=== PATIENT | male | born 1995 | race Hispanic/Latino ===

== ENCOUNTER 2017-07-04 07:29 | Emergency (ER) | payer MEDICAID ==
[2017-07-04 08:29] VITALS: RESP 18; TEMP 99.6; BMI 42.5
[2017-07-04] MEDS ORDERED: Amoxicillin-Clav 875-125 mg Tab PO STA (08:41)
--- NOTE | 2017-07-04 08:45 | ED PDOC ---
Arrival/HPI - General Chief Complaint: Abnormal Skin Integrity Time Seen by Provider: 07/04/17 08:14 Historian: Patient - History of Present Illness Narrative History of Present Illness (Text): 07/04/17 08:44 Cayden Seo is a 22 year old male, who denies any past medical history, presents to the emergency department complaining of a painful bump at the top of the intergluteal cleft. The patient states that he has been experiencing this discomfort for the past 2 days and notes that it is painful to sit. The patient denies fevers, chills, headache, dizziness, chest pain, shortness of breath, dyspnea on exertion, cough, abdominal pain, nausea, vomiting, diarrhea, back pain, neck pain, urinary/bowel changes, or any other complaint. PMD: Dr. Juan Aragon Time/Duration: Other (2 Days) Symptom Onset: Sudden Symptom Course: Unchanged Activities at Onset: Rest, Light Context: Home Past Medical History - Neurological Hx Neurological Disorder: Yes (ADHD) - Psychiatric Hx Substance Use: No - Anesthesia Hx Anesthesia: No Family/Social History Smoking Status: Never Smoked Hx Alcohol Use: Yes Hx Substance Use: No Allergies/Home Meds Allergies/Adverse Reactions: Allergies No Known Allergies Allergy (Verified 07/04/17 08:24) Physical Exam Vital Signs Reviewed: Yes Vital Signs Temp Pulse Resp BP Pulse Ox 07/04/17 08:25 99.6 F 111 H 18 121/79 98 Temperature: Afebrile Blood Pressure: Normal Pulse: Tachycardic Respiratory Rate: Normal Appearance: Positive for: Well-Appearing, Non-Toxic, Comfortable Pain Distress: None Mental Status: Positive for: Alert and Oriented X 3 - Systems Exam Head: Present: Atraumatic, Normocephalic Pupils: Present: PERRL Extroacular Muscles: Present: EOMI Conjunctiva: Present: Normal Mouth: Present: Moist Mucous Membranes Neck: Present: Normal Range of Motion Respiratory/Chest: Present: Clear to Auscultation, Good Air Exchange. No: Respiratory Distress, Accessory Muscle Use Cardiovascular: Present: Regular Rate and Rhythm, Normal S1, S2. No: Murmurs Abdomen: No: Tenderness, Distention, Peritoneal Signs Back: Present: Normal Inspection Upper Extremity: Present: Normal Inspection. No: Cyanosis, Edema Lower Extremity: Present: Normal Inspection. No: Edema Neurological: Present: GCS=15, CN II-XII Intact, Speech Normal Skin: Present: Warm, Dry, Normal Color. No: Rashes Psychiatric: Present: Alert, Oriented x 3, Normal Insight, Normal Concentration Medical Decision Making ED Course and Treatment: 07/04/17 08:49 Impression: A 22 year old male presents to the emergency department presents to the emergency department complaining of a painful abscess at the top of the intergluteal cleft. Plan: -- Augmentin -- Reassess and disposition Progress Notes: 07/04/17 08:41: Case discussed with the neurosurgical nurse practitioner who states that a referral for a surgery consult with Dr. Mims should be given to the patient so the patient can call and make an appointment himself. - Medication Orders Current Medication Orders: Discontinued Medications Amoxicillin/Clavulanate Potassium (Augmentin 875 Mg-125 Mg Tab) 1 tab PO STAT STA PRN Reason: Protocol Stop: 07/04/17 08:42 - Scribe Statement The provider has reviewed the documentation as recorded by the Evelinibisabel Mann Provider Scribe Attestation: All medical record entries made by the Scribe were at my direction and personally dictated by me. I have reviewed the chart and agree that the record accurately reflects my personal performance of the history, physical exam, medical decision making, and the department course for this patient. I have also personally directed, reviewed, and agree with the discharge instructions and disposition. Disposition/Present on Arrival - Present on Arrival Any Indicators Present on Arrival: No History of DVT/PE: No History of Uncontrolled Diabetes: No Urinary Catheter: No History of Decub. Ulcer: No History Surgical Site Infection Following: None - Disposition Have Diagnosis and Disposition been Completed?: Yes Diagnosis: Pilonidal abscess Disposition Time: 08:46 Patient Plan: Discharge Patient Problems: Current Active Problems Problem Status Onset Pilonidal abscess Acute Discharge Instructions (ExitCare): Pilonidal Cyst (DC) Additional Instructions: Call the surgeon's office today to make the appointment to have this excised. Prescriptions: Amoxicillin/Clavulanate [Augmentin 875 MG-125 MG] 1 tab PO BID #20 tab Ondansetron [Zofran Odt] 8 mg PO TID #30 tab.rapdis oxyCODONE/Acetaminophen [Percocet 5/325 mg Tab] 1 ea PO QID #20 tab Referrals: Verona Aragon MD [Primary Care Provider] - Follow up with primary Carlin Mims MD [Staff Provider] - Follow up with primary Forms: [employer] (Nepali)
[2017-07-04 10:02] VITALS: BP 123/80; PULSE 106; O2SAT 97
== END 2017-07-04 10:02 | disposition home or self-care (01) ==
LOC: ED 07:29
DX: L05.01 Pilonidal cyst with abscess (principal)